=== PATIENT | female | born 1955 | race Caucasian/White ===

== ENCOUNTER 2022-11-10 10:05 | Emergency (ER) | payer OTHER ==
[~2022-11-10] VITALS: Ht 170.2 cm; Wt 90.8 kg
[2022-11-10 10:33] VITALS: BP 111/65; PULSE 60; RESP 16; TEMP 97.9; O2SAT 99
[2022-11-10] MEDS ORDERED: KETOROLAC 30 MG/ML VIAL IM ONE (11:40)
[2022-11-10 11:52] LABS: BASOPHILS # (AUTO) 0.1 K/uL (0.00-0.22); BASOPHILS % (AUTO) 1.3 % (0.0-2.0); EOSINOPHILS # (AUTO) 0.2 K/uL (0-0.4); EOSINOPHILS % (AUTO) 2.8 % (0.0-4.0); HEMATOCRIT 36.8 % (36-48); HEMOGLOBIN 12.5 g/dL (12.0-16.0); LYMPHOCYTES # (AUTO) 1.3 K/uL (2.5-16.5); LYMPHOCYTES % (AUTO) 18.7 % (20.5-51.1); MEAN CORPUSCULAR HEMOGLOBIN 36 pg (27-31); MEAN CORPUSCULAR HGB CONC 34 g/dL (33-37); MEAN CORPUSCULAR VOLUME 106.2 fL (80-94); MONOCYTES % (AUTO) 15.2 % (1.7-9.3); NEUTROPHILS # (AUTO) 4.3 K/uL (1.8-7.7); PLATELET COUNT (AUTO) 145 K/uL (140-450); RED BLOOD CELL COUNT(AUTO) 3.46 MIL/uL (4.20-5.40); RED CELL DISTRIBUTION WIDTH 12.9 % (11.6-13.7); WHITE BLOOD COUNT (AUTO) 6.9 K/uL (4.8-10.8)
[2022-11-10 12:04] LABS: ALBUMIN 3.2 g/dL (3.4-5.0); ANION GAP 13.4 (8-16); CALCIUM 9.4 mg/dL (8.5-10.1); CARBON DIOXIDE 24.9 mmol/L (21-32); CREATININE 1.4 mg/dL (0.6-1.3); POTASSIUM 4.3 mmol/L (3.5-5.1); TOTAL BILIRUBIN 1.4 mg/dL (0.0-1.0); TOTAL PROTEIN, SERUM 6.5 g/dL (6.4-8.2)
[2022-11-10] MEDS ORDERED: BACITRACIN OINT 500 UNITS/GM PKT TP ONE ×2 (13:15→13:20)
[2022-11-10] MEDS ORDERED: BACI-418 TP (14:14)
[2022-11-10] MEDS ORDERED: CEPH-588 PO (14:14)
[2022-11-10] MEDS ORDERED: ACET-10509 PO (14:14)
[2022-11-10 14:32] VITALS: BP 111/65; PULSE 60; RESP 16; TEMP 97.9; O2SAT 99
== END 2022-11-10 14:31 | disposition home or self-care (01) ==
LOC: MED 10:05
DX: S41.111A Laceration without foreign body of right upper arm, initial encounter (principal); S80.11XA Contusion of right lower leg, initial encounter; S80.12XA Contusion of left lower leg, initial encounter; L08.9 Local infection of the skin and subcutaneous tissue, unspecified; J45.909 Unspecified asthma, uncomplicated; I10 Essential (primary) hypertension; Z79.899 Other long term (current) drug therapy; W22.8XXA Striking against or struck by other objects, initial encounter; Y93.89 Activity, other specified; Y92.89 Other specified places as the place of occurrence of the external cause; Y99.8 Other external cause status
CPT/HCPCS: 36415; 73090; 80053; 85025; 93005; 96372; 99285; J1885; Q0092